=== PATIENT | female | born 1990 | race Caucasian/White ===

== ENCOUNTER 2020-06-12 11:40 | Outpatient (CLI) | payer OTHER, SELFPAY | END 2020-06-12 11:41 | disposition home or self-care (01) | LOC: ANHBWCLAB 11:44 | PROVIDERS: PCP Family Medicine; Visit Provider Family Medicine | DX: E03.9 Hypothyroidism, unspecified (principal) | CPT/HCPCS: 36415; 84443 ==

== ENCOUNTER 2020-11-01 07:33 | Outpatient (CLI) | payer OTHER, SELFPAY ==
[2020-11-01 19:03] LABS: Hematocrit 44.3 % (37.0-47.0); Mean Corpuscular HGB Conc 31.6 g/dl (32-36); Mean Corpuscular Hemoglobin 26.6 pg (26-34); Mean Corpuscular Volume 84.2 fl (80-100); Mean Platelet Volume 9.7 fl (7.4-10.4); Platelet Count Result 370 k/mm3 (150-375); Red Blood Count 5.26 M/mm3 (4.2-5.4); Red Cell Distribution Width 15.1 % (11.5-14.5); White Blood Count 7.7 K/mm3 (4.5-10.0)
[2020-11-01 19:13] LABS: Alanine Aminotransferase 130 U/L (4-35); Albumin Level 4.3 g/dL (3.5-5.1); Alkaline Phosphatase 91 U/L (38-126); Anion Gap 11 mmol/L (8-16); Aspartate Amino Transferase 97 U/L (14-36); Bilirubin,Total 0.6 mg/dL (0.2-1.3); Blood Urea Nitrogen 8 mg/dL (7-17); Calcium 9.4 mg/dL (8.4-10.2); Carbon Dioxide 21 mmol/L (22-30); Chloride 103 mmol/L (98-107); Cholesterol 233 mg/dL (0-200); Estimated Glomerular Filt Rate > 60; Glucose 121 mg/dL (65-110); HDL Direct 48 mg/dL; Potassium 4.1 mmol/L (3.4-5.0); Sodium 135 mmol/L (137-145); Triglycerides 112 mg/dL (<150)
[2020-11-01 19:23] LABS: LDL Cholesterol Direct 147 mg/dL
[2020-11-01 19:53] LABS: Hemoglobin A1C 5.5 % (<5.7)
== END 2020-11-01 07:34 | disposition home or self-care (01) ==
LOC: ANHBWCLAB 07:35
PROVIDERS: PCP Family Medicine
DX: F43.10 Post-traumatic stress disorder, unspecified (principal); Z51.81 Encounter for therapeutic drug level monitoring; Z79.899 Other long term (current) drug therapy
CPT/HCPCS: 36415; 80053; 80061; 83036; 84443; 85027

== ENCOUNTER 2020-11-02 07:23 | Outpatient (CLI) | payer OTHER, SELFPAY ==
[2020-11-02 18:26] LABS: Add Urine Microscopic? YES; Appearance Urine Clear (Clear); Bilirubin Urine Negative (Negative); Blood Urine 3+ (Negative); Color Urine Yellow (Yellow); Glucose Urine UA Negative (Negative); Ketones Urine Negative (Negative); Leukocyte Esterase Ur Negative LEU/UL (NEGATIVE); Mucus Urine Rare /lpf; Nitrate Urine Negative (Negative); Protein Urine 1+ mg/dL (Negative); RBC Urine 0-2 /hpf (0-2); Specific Grav Ur 1.018 (1.001-1.035); Squamous Epithelial Cell Urine Rare /hpf (Few); Urobilinogen Urine Negative mg/dL (<2.0); WBC Urine 0-3 /hpf (0-3)
== END 2020-11-02 07:24 | disposition home or self-care (01) ==
PROVIDERS: PCP Family Medicine
DX: Z51.81 Encounter for therapeutic drug level monitoring (principal); Z79.899 Other long term (current) drug therapy; F43.10 Post-traumatic stress disorder, unspecified
CPT/HCPCS: 81001

== ENCOUNTER 2021-03-06 08:01 | Outpatient (CLI) | payer OTHER, SELFPAY ==
[2021-03-06 19:33] LABS: Alanine Aminotransferase 134 U/L (4-35); Albumin Level 4.4 g/dL (3.5-5.1); Alkaline Phosphatase 95 U/L (38-126); Aspartate Amino Transferase 110 U/L (14-36); Bilirubin,Total 0.5 mg/dL (0.2-1.3)
[2021-03-07 15:51] LABS: Total Triiodothyronine (T3) 1.77 NG/ML (0.97-1.69)
== END 2021-03-06 08:02 | disposition home or self-care (01) ==
PROVIDERS: PCP Family Medicine; Visit Provider Family Medicine
DX: R74.8 Abnormal levels of other serum enzymes (principal)
CPT/HCPCS: 36415; 80076; 84439; 84443; 84480

== ENCOUNTER 2021-05-02 07:11 | Outpatient (CLI) | payer OTHER, SELFPAY ==
[2021-05-02 19:00] LABS: Alanine Aminotransferase 98 U/L (4-35); Albumin Level 4.1 g/dL (3.5-5.1); Alkaline Phosphatase 83 U/L (38-126); Anion Gap 11 mmol/L (8-16); Aspartate Amino Transferase 80 U/L (14-36); Bilirubin,Total 0.6 mg/dL (0.2-1.3); Blood Urea Nitrogen 10 mg/dL (7-17); Calcium 9.1 mg/dL (8.4-10.2); Carbon Dioxide 20 mmol/L (22-30); Chloride 104 mmol/L (98-107); Estimated Glomerular Filt Rate > 60; Glucose 120 mg/dL (65-110); Phosphorus 3.7 mg/dL (2.5-4.5); Potassium 4.1 mmol/L (3.4-5.0); Sodium 135 mmol/L (137-145)
[2021-05-02 19:18] LABS: Free T4 Free Thyroxine 1.17 ng/mL (0.78-2.19)
[2021-05-02 19:31] LABS: Hepatitis B Surface Antigen Negative (Negative)
[2021-05-02 19:37] LABS: HAV RESULT Negative (Negative); Hepatitis B Core IgM Result Negative (Negative)
[2021-05-02 19:49] LABS: Hepatitis C Virus Antibody Negative (Negative)
[2021-05-03 12:02] LABS: Free T4 Free Thyroxine Reflex 1.18 ng/dL (0.78-2.19)
[2021-05-05 09:20] LABS: Triiodothyronine T3 Free 3.2 pg/mL (2.3-4.2)
== END 2021-05-02 07:12 | disposition home or self-care (01) ==
LOC: ANHBWCLAB 07:13
PROVIDERS: PCP Family Medicine; Visit Provider Family Medicine
DX: E03.9 Hypothyroidism, unspecified (principal); K76.0 Fatty (change of) liver, not elsewhere classified; R74.8 Abnormal levels of other serum enzymes
CPT/HCPCS: 36415; 80069; 80074; 80076; 84436; 84439; 84443; 84480; 84481

== ENCOUNTER 2021-05-21 07:07 | Outpatient (CLI) | payer OTHER, SELFPAY ==
[2021-05-24 07:28] LABS: Thyroid Peroxidase Antibodies 185 IU/mL (<9)
[2021-05-28 00:22] LABS: ALT 88 U/L (6-29); Alpha-2-Macroglobulin 292 mg/dL (106-279); Apolipoprotein A1 121 mg/dL (101-198); Fibrosis Score 0.22; Fibrosis Stage F0-F1; GGT 40 U/L (3-50); Haptoglobin 198 mg/dL (43-212); Necroinflammat Act Grade A1-A2; Total Bilirubin 0.4 mg/dL (0.2-1.2)
== END 2021-05-21 07:08 | disposition home or self-care (01) ==
LOC: ANHBWCLAB 07:08
PROVIDERS: PCP Family Medicine; Visit Provider Family Medicine
DX: E03.9 Hypothyroidism, unspecified (principal); K76.0 Fatty (change of) liver, not elsewhere classified; R74.8 Abnormal levels of other serum enzymes
CPT/HCPCS: 36415; 81596; 86376

== ENCOUNTER 2021-06-15 13:42 | Outpatient (CLI) | payer OTHER, SELFPAY ==
[2021-06-20 19:50] LABS: EBV Nuclear Ab Interpretation Past; EBV Virus Capsid Ag IgM Ab <36.00 U/mL (<36.00)
== END 2021-06-15 13:43 | disposition home or self-care (01) ==
PROVIDERS: PCP Family Medicine; Visit Provider Family Medicine
DX: R53.82 Chronic fatigue, unspecified (principal)
CPT/HCPCS: 36415; 86664; 86665

== ENCOUNTER 2021-07-13 13:13 | Outpatient (CLI) | payer OTHER, SELFPAY ==
[2021-07-13 19:34] LABS: Free T4 Free Thyroxine 1.38 ng/mL (0.78-2.19)
== END 2021-07-13 13:14 | disposition home or self-care (01) ==
PROVIDERS: PCP Family Medicine; Visit Provider Family Medicine
DX: E03.9 Hypothyroidism, unspecified (principal)
CPT/HCPCS: 36415; 84439; 84443

== ENCOUNTER 2021-12-17 15:04 | Outpatient (CLI) | payer MEDICARE, MEDICAID, SELFPAY ==
[2021-12-17 19:53] LABS: Basophils Absolute Auto 0.1 K/mm3 (0.0-0.1); Eosinophils Absolute Auto 0.2 K/mm3 (0-0.3); Eosinophils Percent Auto 3.2 % (0-4.4); Hematocrit 39.7 % (37.0-47.0); Hemoglobin 11.9 g/dL (12.0-15.0); Immature Granulocyte Absolute 0.02 K/mm3 (0.00-0.031); Immature Granulocyte Percent A 0.3 % (0-0.5); Lymphocytes Absolute Auto 2.48 K/mm3 (0.9-3.2); Lymphocytes Percent Auto 34.7 % (18.3-44.2); Mean Corpuscular Hemoglobin 23.9 pg (26-34); Mean Corpuscular Volume 79.9 fl (80-100); Mean Platelet Volume 9.9 fl (7.4-10.4); Monocytes Absolute Auto 0.6 K/mm3 (0.1-0.6); Monocytes Percent Auto 8.4 % (2.6-8.5); Neutrophils Absolute Auto 3.8 K/mm3 (1.3-6.7); Neutrophils Percent Auto 52.4 % (45.5-73.1); Platelet Count Result 369 k/mm3 (150-375); Red Blood Count 4.97 M/mm3 (4.2-5.4); Red Cell Distribution Width 15.3 % (11.5-14.5); White Blood Count 7.2 K/mm3 (4.5-10.0)
[2021-12-17 20:05] LABS: Alanine Aminotransferase 61 U/L (6-35); Albumin Level 4.3 g/dL (3.5-5.1); Alkaline Phosphatase 80 U/L (38-126); Anion Gap 12 mmol/L (8-16); Aspartate Amino Transferase 49 U/L (14-36); Bilirubin,Total 0.2 mg/dL (0.2-1.3); Blood Urea Nitrogen 7 mg/dL (7-17); Calcium 9.4 mg/dL (8.4-10.2); Carbon Dioxide 26 mmol/L (22-30); Chloride 99 mmol/L (98-107); Cholesterol 228 mg/dL (0-200); Estimated Glomerular Filt Rate > 60; Glucose 106 mg/dL (65-110); HDL Direct 49 mg/dL; Sodium 137 mmol/L (137-145); Triglycerides 111 mg/dL (<150)
[2021-12-17 20:17] LABS: LDL Cholesterol Direct 142 mg/dL
[2021-12-17 20:28] LABS: Free T4 Free Thyroxine 1.18 ng/mL (0.78-2.19)
[2021-12-19 14:31] LABS: Triiodothyronine T3 Free 2.9 pg/mL (2.3-4.2)
[2021-12-23 02:26] LABS: Estrogen 438.1 pg/mL; Testosterone Free 7.6 pg/mL (0.1-6.4); Testosterone Total 120 ng/dL (2-45)
[2021-12-23 16:26] LABS: FSH 5.1 mIU/mL (***); LH 10.6 mIU/mL (***); Progesterone 1.9 ng/mL (***)
== END 2021-12-17 15:05 | disposition home or self-care (01) ==
PROVIDERS: PCP Family Medicine; Visit Provider Family Medicine
DX: E03.9 Hypothyroidism, unspecified (principal); F32.9 Major depressive disorder, single episode, unspecified; F41.0 Panic disorder [episodic paroxysmal anxiety]; F84.5 Asperger's syndrome; G47.10 Hypersomnia, unspecified; J45.40 Moderate persistent asthma, uncomplicated; K21.9 Gastro-esophageal reflux disease without esophagitis; K76.0 Fatty (change of) liver, not elsewhere classified; R53.82 Chronic fatigue, unspecified; L67.8 Other hair color and hair shaft abnormalities; L68.0 Hirsutism; N92.6 Irregular menstruation, unspecified
CPT/HCPCS: 36415; 80053; 80061; 82672; 83001; 83002; 84144; 84402; 84403; 84439; 84443; 84481; 85025

== ENCOUNTER 2022-03-16 10:37 | Outpatient (CLI) | payer MEDICARE, MEDICAID, SELFPAY ==
[2022-03-16 11:47] LABS: Anion Gap 9 mmol/L (8-16); Blood Urea Nitrogen 10 mg/dL (7-17); Calcium 9.4 mg/dL (8.4-10.2); Carbon Dioxide 29 mmol/L (22-30); Chloride 102 mmol/L (98-107); Estimated Glomerular Filt Rate > 60; Glucose 98 mg/dL (65-110); Potassium 4.1 mmol/L (3.4-5.0); Sodium 140 mmol/L (137-145)
[2022-03-16 13:33] LABS: Iron 28 ug/dL (37-170)
[2022-03-16 13:42] LABS: Percent Iron Saturation 5 % (20-50)
[2022-03-23 15:18] LABS: Testosterone Free 4.2 pg/mL (0.1-6.4); Testosterone Total 40 ng/dL (2-45)
== END 2022-03-16 10:38 | disposition home or self-care (01) ==
LOC: ANHLAB 10:39
PROVIDERS: PCP Family Medicine; Visit Provider Family Medicine
DX: E28.2 Polycystic ovarian syndrome (principal); E61.1 Iron deficiency
CPT/HCPCS: 36415; 80048; 83540; 83550; 84402; 84403

== ENCOUNTER 2022-07-18 14:36 | Outpatient (CLI) | payer MEDICARE, MEDICAID, SELFPAY ==
[2022-07-18 19:14] LABS: Alanine Aminotransferase 24 U/L (6-35); Albumin Level 4.5 g/dL (3.5-5.1); Alkaline Phosphatase 55 U/L (38-126); Anion Gap 8 mmol/L (8-16); Aspartate Amino Transferase 34 U/L (14-36); Bilirubin,Total 0.4 mg/dL (0.2-1.3); Blood Urea Nitrogen 7 mg/dL (7-17); Calcium 9.2 mg/dL (8.4-10.2); Carbon Dioxide 30 mmol/L (22-30); Chloride 101 mmol/L (98-107); Estimated Glomerular Filt Rate > 60; Glucose 79 mg/dL (65-110); Potassium 3.7 mmol/L (3.4-5.0); Sodium 139 mmol/L (137-145)
[2022-07-18 19:29] LABS: Iron 55 ug/dL (37-170)
[2022-07-18 19:40] LABS: Percent Iron Saturation 13 % (20-50)
[2022-07-18 20:08] LABS: Basophils Absolute Auto 0.1 K/mm3 (0.0-0.1); Basophils Percent Auto 1.1 % (0.2-1.2); Eosinophils Absolute Auto 0.1 K/mm3 (0-0.3); Eosinophils Percent Auto 1.9 % (0-4.4); Hematocrit 44.1 % (37.0-47.0); Immature Granulocyte Absolute 0.01 K/mm3 (0.00-0.031); Immature Granulocyte Percent A 0.2 % (0-0.5); Lymphocytes Absolute Auto 1.85 K/mm3 (0.9-3.2); Lymphocytes Percent Auto 32.6 % (18.3-44.2); Mean Corpuscular HGB Conc 31.7 g/dl (32-36); Mean Platelet Volume 10.3 fl (7.4-10.4); Monocytes Absolute Auto 0.5 K/mm3 (0.1-0.6); Monocytes Percent Auto 8.3 % (2.6-8.5); Neutrophils Absolute Auto 3.2 K/mm3 (1.3-6.7); Neutrophils Percent Auto 55.9 % (45.5-73.1); Platelet Count Result 304 k/mm3 (150-375); Red Blood Count 5.19 M/mm3 (4.2-5.4); Red Cell Distribution Width 15.9 % (11.5-14.5); White Blood Count 5.7 K/mm3 (4.5-10.0)
== END 2022-07-18 14:37 | disposition home or self-care (01) ==
LOC: ANHBWCLAB 14:37
PROVIDERS: PCP Family Medicine; Visit Provider Family Medicine
DX: E03.9 Hypothyroidism, unspecified (principal); E61.1 Iron deficiency; E28.2 Polycystic ovarian syndrome; J45.901 Unspecified asthma with (acute) exacerbation; R53.82 Chronic fatigue, unspecified
CPT/HCPCS: 36415; 80053; 83540; 83550; 84443; 85025